=== PATIENT | female | born 2000 | race Caucasian/White ===

== ENCOUNTER → 2021-07-08 | Outpatient (CLI) | payer BC ==
--- NOTE | 2021-07-08 12:23 | Diagnostic Imaging Report ---
INDICATION: OB ultrasound for survey. TECHNIQUE: Multiple real-time grayscale images were obtained over the gravid uterus. COMPARISON: None. FINDINGS: There is single live intrauterine fetus which is vertex. Placenta is anterior and grade 1. No evidence of abruption or previa. Amniotic fluid index is normal. anatomical survey is normal with structures visualized kidneys, bladder, stomach, brain and ventricles, four-chamber heart, three-vessel cord, cord insertion, and spine. The maternal adnexa are normal. Biometrical measurements are as follows: Biparietal 4.86 cm, age 20 weeks 5 days. Head circumference 17.82 cm, age 20 weeks 2 days. Abdominal circumference 15.62 cm, age 20 weeks 6 days. Femur length 3.47 cm, age 21 weeks 0 days. Sonographic estimate age: 20 weeks 5 days. Sonographic estimated date of delivery: 11/20/2021. Estimated Weight: 377 gm (+/- 55 gm). LMP percentile: 87%. heart rate: 155 beats per minute. number: 1 of 1. IMPRESSION: 1. There is a single live intrauterine fetus. Current biometric measurements are average for 20 week 5 day gestation. Sonographic MARCO of 11/20/2021. This is in the 87th percentile with LMP. Dictated by: Dictated on workstation # [id number]
== END ==
LOC: RAD 09:48
PROVIDERS: ATTEND Nurse Practitioner Women's Health
DX: Z34.02 Encounter for supervision of normal first pregnancy, second trimester (principal)
CPT/HCPCS: 76805

== ENCOUNTER 2021-11-12 19:03 | Inpatient (IN) | payer BC, MEDICAID ==
[~2021-11-12] VITALS: Ht 167.7 cm; Wt 87.1 kg
[2021-11-12] VITALS (7 sets, daily range): BP systolic 103–137; BP diastolic 54–75
[2021-11-12] MEDS ORDERED: GLIP5TAB13 PO (19:50)
[2021-11-12] MEDS ORDERED: PNV1TABL9 PO (19:50)
[2021-11-12] MEDS ORDERED: NS IV 1000 ML 1,000 ML ONE ×2 (20:12→21:03)
[2021-11-12] MEDS ORDERED: LIDOCAINE/EPI 2% 1:200,00 (XYLOCAINE) 20 ML VIAL INJ PRN (20:15)
[2021-11-12] MEDS ORDERED: CATHETER FLUSH 10 ML SYR IV PRN (20:15)
[2021-11-12] MEDS ORDERED: NS IV 1000 ML 1,000 ML IV SCH (20:15)
[2021-11-12] MEDS ORDERED: LIDOCAINE 1% INJ 20 ML VIAL INJ PRN (20:15)
[2021-11-12] MEDS ORDERED: TERBUTALINE INJ 1 MG/ML (BRETHINE) AMP SC PRN (20:15)
[2021-11-12] MEDS ORDERED: MINERAL OIL CONCENTRATE 99.9% 15 ML UDC TOP PRN (20:15)
[2021-11-12 20:55] LABS: BASOPHILS % (AUTO) 0 % (0-10); EOSINOPHILS # (AUTO) 0.1 10^3/uL (0.0-0.3); EOSINOPHILS % (AUTO) 1 % (0-10); HEMATOCRIT 35 % (35-52); HEMOGLOBIN 12.2 g/dL (11.5-16.0); LYMPHOCYTES # (AUTO) 2.1 10^3/uL (1.0-4.0); LYMPHOCYTES % (AUTO) 21 % (12-44); MEAN CORPUSCULAR HEMOGLOBIN 31 pg (25-34); MEAN CORPUSCULAR HGB CONC 35 g/dL (32-36); MEAN CORPUSCULAR VOLUME 91 fL (80-99); MONOCYTES # (AUTO) 0.6 10^3/uL (0.0-1.0); MONOCYTES % (AUTO) 6 % (0-12); NEUTROPHILS % (AUTO) 71 % (42-75); PLATELET COUNT 249 10^3/uL (130-400)
[2021-11-12] MEDS: NS IV 1000 ML 1,000 ML IV SCH (21:08)
[2021-11-13] VITALS (99 sets, daily range): BP systolic 79–162; BP diastolic 42–94
[2021-11-13] MEDS: NS IV 1000 ML 1,000 ML IV SCH ×4 (05:07→23:57)
[2021-11-13] MEDS ORDERED: ACETAMINOPHEN 500 MG TAB (TYLENOL) ONE (05:10)
[2021-11-13] MEDS ORDERED: ONDANSETRON 4 MG/2 ML (SDV) Z0FRAN IVP PRN (05:15)
[2021-11-13] MEDS ORDERED: ACETAMINOPHEN 500 MG TAB (TYLENOL) PO PRN (05:15)
[2021-11-13] MEDS ORDERED: OXYTOCIN PRE-MIX DRIP 500 ML IV SCH (08:45)
[2021-11-13] MEDS ORDERED: fentaNYL 2 mcg/ml BUPIVA 0.125 100 ML ONE (13:39)
[2021-11-13] MEDS ORDERED: LACTATED RINGERS 1,000 ML IV ONE ×2 (13:40→16:30)
[2021-11-13] MEDS: fentaNYL 2 mcg/ml BUPIVA 0.125 100 ML IV SCH ×2 (14:40→23:23)
[2021-11-13] MEDS ORDERED: fentaNYL INJ 100 MCG/2 ML AMP ONE (14:48)
[2021-11-13] MEDS ORDERED: fentaNYL INJ 100 MCG/2 ML AMP INJ ONE (16:30)
[2021-11-13] MEDS ORDERED: CATHETER FLUSH 10 ML SYR IV PRN (16:30)
[2021-11-13] MEDS ORDERED: NALOXONE 0.4 MG/ML 1 ML (NARCAN) VIAL IV PRN (16:30)
[2021-11-14] VITALS (33 sets, daily range): BP systolic 102–148; BP diastolic 54–99
[2021-11-14] MEDS ORDERED: CITRIC ACID/SOB CIT (BICITRA) 30 ML UDC PO ONE (05:00)
[2021-11-14] MEDS ORDERED: LACTATED RINGERS 1,000 ML IV PRN ×2 (05:00)
[2021-11-14] MEDS ORDERED: CATHETER FLUSH 10 ML SYR IV PRN (05:00)
[2021-11-14] MEDS ORDERED: METOCLOPRAMIDE INJ 10 MG/2 ML (REGLAN) IV ONE (05:00)
[2021-11-14] MEDS ORDERED: FAMOTIDINE 20MG/2ML IV (PEPCID) IV ONE (05:00)
--- NOTE | 2021-11-14 05:01 | History & Physical-OB ---
OB - Chief Complaint & HPI Date/Time Date of Admission: Date of Admission: Nov 12, 2021 at 19:03 Date seen by a Provider: Nov 13, 2021 Time Seen by a Provider: 07:45 Chief Complaint/History OB-Reason for Admission/Chief: Induction of Labor Hx : 1 Hx Para: 0 Expected Date of Delivery: Nov 25, 2021 Gestational Age in Weeks: 38 Gestational Age in Days: 1 Admission Nurse Assessment Rev: Yes History of Labs A pos Antibody neg RI RPR NR HBsAg NR HIV NR GC neg GBSneg Allergies and Home Medications Allergies Coded Allergies: No Known Drug Allergies (Unverified , 11/12/21) Patient Home Medication List Home Medication List Reviewed: Yes Glipizide (Glipizide) 5 Mg Tablet, 1.25 MG PO DAILY, (Reported) Entered as Reported by: KULWINDER PULLIAM on 11/12/211949 Last Action: Reviewed Pnv Cmb#21/Iron/Folic Acid ( Complete Caplet) 1 Each Tablet, 1 EACH PO DAILY, (Reported) Entered as Reported by: KULWINDER PULLIAM on 11/12/211949 Last Action: Reviewed OB - History Hx of Present Care: Yes Ultrasounds: Normal mid trimester US Obstetrical Complications: Gestational Diabetes Medical Complications: None Patient Past Medical History n/a Immunizations Influenza Vaccine Up-to-Date: Yes; Up-to-Date First/Initial COVID19 Vaccine: 2020 Second COVID19 Vaccination: 2020 COVID19 Vaccine Lna: Tephaa OB - Admission Exam Physical Exam Vitals: Vital Signs 11/14/21 03:15 Temp 37.2 Pulse 68 Resp 18 B/P (MAP) 117/75 (89) Pulse Ox 98 O2 Delivery Room Air HEENT: NCAT Heart: Rhythm Normal Lungs: Clear Abdomen: Gravid Extremities: Normal Reflexes: Normal Cervical Dilatation: Fingertip Effacement: 75% Station: -1 Membranes: Intact Heart Rate: 130's Accelerations: Accelerations Present Decelerations: No Decelerations Short Term Variability: Present Fiber Designer Variability: Average (6-25) Contractions on Admission: >10 Minutes Apart Intensity: Mild OB - Assessment/Plan/Diagnosis Assessment Assessment: induction of labor Admission Dx 21 yo @ 38.3 GDMA2 on Glyburide GBS neg Admission Status: Inpatient Order (span 2 midnights) Reason for Inpatient Admission: 38 week IOL Plan Plan: Induction Induction Method: per Misoprostol Protocol CAIT GUY DO Nov 14, 2021 05:01
--- NOTE | 2021-11-14 05:09 | Progress Note ---
Standard Progress Note Progress Notes/Assess & Plan Date Seen by a Provider: Nov 14, 2021 Time Seen by a Provider: 04:50 Progress/Assessment & Plan This patient was admitted due to GDMA2 on glyburide with worsening control for IOL at 38 weeks. On Wednesday night she received misoprostol 100 mcg po then 50 q 4 hrs overnight. Yesterday morning she was checked and unable to break her water, therefore pitocin augmentation was started. She had AROM performed at about 1300, clear fluid was noted, she began to get more uncomfortable at which point an epidural was placed. She progressed from that point reaching a max dose of pitocin of 20 mu to 9 cm, and stopped making change. I was called to come evaluate at 0430 due to discomfort and pain beyond control of the epidural. She was noted to have significant vulvar swelling, and she was noted to have cervical swelling as well making her SVE appear to be 8 cm, caput noted on presenting part as well. Due to suspicion of CPD I discussed with the patient likely CPD due to long labor progression, and no head descent. I offered delivery which she was agreeable to proceed with, risk of the procedure and recovery reviewed. All questions answered. Will proceed as soon as OR staff arrives and ready. CAIT GUY DO Nov 14, 2021 05:09
[2021-11-14] MEDS ORDERED: MEASLES,MUMPS,RUBELLA 1 EA INJ SC SCH (05:15)
[2021-11-14] MEDS ORDERED: TETANUS,DIPTH,PERTUSS P/F (BOOSTRIX) 0.5 ML VIAL IM SCH (05:15)
[2021-11-14] MEDS ORDERED: ONDANSETRON 4 MG/2 ML (SDV) Z0FRAN IVP PRN ×2 (05:15→07:00)
[2021-11-14] MEDS ORDERED: NALOXONE 0.4 MG/ML 1 ML (NARCAN) VIAL IV PRN (05:15)
[2021-11-14] MEDS ORDERED: fentaNYL INJ 100 MCG/2 ML AMP ONE (05:24)
--- NOTE | 2021-11-14 05:24 | Discharge Inst-Women's Service ---
Discharge Inst-Women's Serv Depart Medication/Instructions New, Converted or Re-Newed RX: Transmitted to Pharmacy Final Diagnosis POD 2 PLTCS Problems Reviewed?: Yes Consults/Follow Up Additional Follow Up: Yes Orders/Referrals Dr. Diaz in 7-10 days and in 6 weeks Activity Driving Instructions: No Driving for 1 Week NO SMOKING: NO SMOKING Nothing Inside Vagina: No Douching, No [place], No Tampons Diet Discharge Diet: No Restrictions Symptoms to Report to : Bleeding Excessive, Pain Increased, Fever Over 101 Degrees F, Vaginal Bleeding Increase, Questions/Concerns For Any Problems or Questions: Contact Your Physician Skin/Wound Care Infection Signs and Symptoms: Increased Redness, Foul Odor of Wound, Increased Drainage, Skin Itchy or Has a Rash, Increased Swelling, Temperature Above 101 F Operative Area Clean and Dry: Keep Incision Clean/Dry Stitches/[place]/Dermabond: Dermabond, Care of Stitches Bathing Instructions: CAIT Vaca DO Nov 14, 2021 05:24
[2021-11-14] MEDS ORDERED: DOCU100C37 PO (05:26)
[2021-11-14] MEDS ORDERED: ACHD5005 PO (05:26)
[2021-11-14] MEDS ORDERED: IBUP-844 PO (05:26)
[2021-11-14] MEDS ORDERED: OXYTOCIN PRE-MIX DRIP 1,000 ML IV ONE (05:26)
[2021-11-14] MEDS: ceFAZolin 2 GM IV Premixed 50 ML IV ONE ×2 (05:36→05:41)
[2021-11-14] MEDS ORDERED: METHYLERGONOVINE 0.2 MG/ML (METHERGINE) AMP ONE (06:01)
[2021-11-14] MEDS ORDERED: MIDAZOLAM 2 MG/2 ML (VERSED) VIAL ONE (06:05)
[2021-11-14] MEDS ORDERED: KETAMINE 50 MG/5 ML SYRINGE ONE (06:08)
[2021-11-14] MEDS ORDERED: KETAMINE HCL 100 MG/ML 5 ML VIAL ONE (06:08)
[2021-11-14] MEDS ORDERED: BUPIVACAINE 0.5% 30 ML (SENSORCAINE) VIAL ONE (06:14)
[2021-11-14] MEDS ORDERED: LIDOCAINE PF 2% 5 ML (XYLOCAINE) VIAL ONE (06:14)
[2021-11-14] MEDS: KETOROLAC 30 MG/ML VIAL IV SCH ×3 (06:53→18:45)
[2021-11-14] MEDS ORDERED: HYDROmorphone 2 MG/ML VIAL (DILAUDID) IV ONE (07:00)
[2021-11-14] MEDS: DOCUSATE SODIUM 100 MG (COLACE) CAP PO SCH ×2 (08:22→22:10)
[2021-11-14] MEDS: HYDROcodone/APAP 5 MG/325 MG (LORTAB) TAB PO PRN ×3 (08:22→22:10)
[2021-11-14] MEDS: OXYTOCIN PRE-MIX DRIP 500 ML IV SCH ×2 (08:23→22:43)
--- NOTE | 2021-11-14 08:35 | OPERATIVE REPORT ---
DATE OF SERVICE: PREOPERATIVE DIAGNOSES: 1. A 21-year-old G1, P0 at 38 weeks and 2 days gestation. 2. Failure to progress. 3. Gestational diabetes mellitus A2. POSTOPERATIVE DIAGNOSES: 1. A 21-year-old G1, P0 at 38 weeks and 2 days gestation. 2. Failure to progress. 3. Gestational diabetes mellitus A2. 4. Nuchal cord x1. PROCEDURE: Primary low transverse section. SURGEON: Ricardo Guy DO ANESTHESIA: Spinal. ESTIMATED BLOOD LOSS: 700 mL. URINE OUTPUT: 300 mL clear at the end of the procedure. FLUIDS: 1000 mL lactated Ringer's solution. FINDINGS: A live female infant weighing 7 pounds 1 ounce, Apgars of 8 and 9. Grossly normal appearing uterus, bilateral fallopian tubes and ovaries. SPECIMEN SENT: Placenta. INDICATIONS FOR PROCEDURE: This 21-year-old female is the patient was brought in on Wednesday evening for induction of labor due to gestational diabetes at 38 weeks. She was given cervical ripening agent overnight, started on Pitocin yesterday. Artificial rupture of membranes was performed. She received an epidural and progressed to 9 cm. She began to have cervical swelling and no descent of the head. There was also significant amount of vulvar swelling. Due to suspicion for cephalopelvic disproportion, I discussed with the patient proceeding with primary . Risks of the procedure were discussed with the patient in detail and after all of her questions were answered, consent was obtained, the patient was taken to the operating room. OPERATIVE REPORT IN DETAIL: Once in the operating room, spinal analgesia was found to be adequate. She was placed in supine position with leftward tilt, prepped and draped in normal sterile fashion. Timeout was performed and anesthesia was tested. I then make a Pfannenstiel skin incision with a knife and carried down to underlying fascia using Bovie cautery. The fascial incision extended laterally using Bovie cautery. Superior aspect of fascial incision was then grasped with Shabnam clamps, tented up and dissected off the underlying rectus muscles. The inferior aspect of fascial incision was then grasped with Shabnam clamps, tented up and dissected off the underlying rectus muscles. Rectus muscles were dissected down the midline, which exposed the peritoneum, which I entered bluntly and extended using blunt traction. I then placed an Brent ring retractor within the peritoneal incision, which offers excellent lateral sidewall retraction. I identified the lower uterine segment, which was found to be thinned out. I make a low transverse incision to the vesicouterine peritoneum and bluntly dissected this off the lower uterine segment, creating a bladder flap. I then proceeded with my myotomy until membranes were visualized, at which point I extended the uterine incision laterally and superiorly using bandage scissors. was found in vertex presentation. With gentle fundal pressure, the 's head was elevated up the incision where the nares and oropharynx were bulb suctioned. Nuchal cord was reduced x1. Anterior and posterior shoulders were delivered. was then brought to the operative field where cord doubly clamped and cut and infant handed off to waiting nurses in attendance. Cord blood was collected, 3-vessel cord with intact placenta was delivered spontaneously thereafter. IV Pitocin was initiated to facilitate uterine contraction. Uterine fundus confirmed by manual massage. The uterus was then exteriorized and cleared of all endometrial clots and debris. I then proceeded with closing the uterine incision using 0 Vicryl suture in running locked fashion. Second layer of imbricating 0 Monocryl was placed. Excellent hemostasis was noted after doing this. I then placed the uterus back in the pelvis and copiously irrigated the pelvis using normal saline. Once again, there was no active bleeding noted from any of my dissection planes. I placed Interceed antiadhesive over my low transverse incision. I removed the Brent ring retractor and then proceeded with closing the peritoneum using 3-0 Vicryl suture in running fashion. Rectus muscles were reapproximated using 3-0 Vicryl suture in interrupted fashion. The fascia was reapproximated using 0 Vicryl suture in a running fashion. Subcutaneous tissue was reapproximated using 3-0 plain interrupted subcutaneous stitch and skin reapproximated using 4-0 Monocryl running subcuticular. Dermabond was applied to incision and sterile dressing with adhesive white tape. The patient tolerated the procedure well and sent to recovery area in stable condition. Lap and sponge counts were correct at the end of the procedure. Instrument counts correct as well. Two grams of Ancef were given preoperatively for infection prophylaxis. Job ID: [id number] DocumentID: [id number] Dictated Date: 11/14/2021 08:22:28 Machine Steak Tenderizer Date: 11/14/2021 08:35:02 Dictated By: RICARDO GUY DO
[2021-11-14] MEDS: fentaNYL 2 mcg/ml BUPIVA 0.125 100 ML IV SCH ×2 (22:35→22:40)
[2021-11-14] MEDS: CATHETER FLUSH 10 ML SYR IV SCH (22:36)
[2021-11-14] MEDS: NS IV 1000 ML 1,000 ML IV SCH (22:38)
[2021-11-15 00:20] VITALS: BP 106/71
[2021-11-15] MEDS: KETOROLAC 30 MG/ML VIAL IV SCH (00:20)
[2021-11-15 04:05] VITALS: BP 113/60
[2021-11-15] MEDS: HYDROcodone/APAP 5 MG/325 MG (LORTAB) TAB PO PRN ×3 (04:09→17:27)
[2021-11-15] MEDS: CATHETER FLUSH 10 ML SYR IV SCH (05:01)
[2021-11-15] MEDS: IBUPROFEN 600 MG (MOTRIN) TAB PO SCH ×4 (06:25→23:41)
[2021-11-15 06:47] LABS: BASOPHILS % (AUTO) 0 % (0-10); EOSINOPHILS # (AUTO) 0.2 10^3/uL (0.0-0.3); EOSINOPHILS % (AUTO) 2 % (0-10); HEMATOCRIT 29 % (35-52); HEMOGLOBIN 9.3 g/dL (11.5-16.0); LYMPHOCYTES # (AUTO) 2.2 10^3/uL (1.0-4.0); LYMPHOCYTES % (AUTO) 21 % (12-44); MEAN CORPUSCULAR HEMOGLOBIN 30 pg (25-34); MEAN CORPUSCULAR HGB CONC 32 g/dL (32-36); MEAN CORPUSCULAR VOLUME 93 fL (80-99); MEAN PLATELET VOLUME 9.9 fL (9.0-12.2); MONOCYTES # (AUTO) 0.9 10^3/uL (0.0-1.0); MONOCYTES % (AUTO) 8 % (0-12); NEUTROPHILS # (AUTO) 7.4 10^3/uL (1.8-7.8); NEUTROPHILS % (AUTO) 68 % (42-75); PLATELET COUNT 149 10^3/uL (130-400); WHITE BLOOD COUNT 10.8 10^3/uL (4.3-11.0)
--- NOTE | 2021-11-15 08:56 | Progress Note ---
PRESLEY DUNN 11/15/21 0856: Subjective Date Seen by a Provider: Nov 15, 2021 Time Seen by a Provider: 08:51 Subjective/Events-last exam 21yo F POD 1 PLTCS. Son reports intense intermittent nonspecific episodes of pain, but patient denies and only reports being a little sore. Ambulating well. Regular diet. Normal lochia. Denies any urinary complaints and passing gas. Denies any fever, chills, nausea, vomiting, or diarrhea. Vitals labile. Objective Exam Last Set of Vital Signs Vital Signs Date Time Temp Pulse Resp B/P (MAP) Pulse Ox O2 Delivery O2 Flow Rate FiO2 11/15/21 04:05 36.3 66 18 113/60 (77) 98 Room Air Capillary Refill : Less Than 3 SecondsLess Than 3 Seconds I&O Intake and Output 11/15/21 00:00 Intake Total 4090 ml Output Total 1850 ml Balance 2240 ml Intake Oral 1250 ml IV Total 2840 ml Output Urine Total 1850 ml General: Alert, Oriented X3, Cooperative HEENT: Atraumatic, EOMI Neck: Supple Lungs: Clear to Auscultation Heart: Regular Rate Abdomen: Soft, No Tenderness Neuro: Normal Speech Psych/Mental Status: Mental Status NL Results Lab Laboratory Tests 11/15/21 06:02: White Blood Count 10.8, Red Blood Count 3.08L, Hemoglobin 9.3#L, Hematocrit 29L, Mean Corpuscular Volume 93, Mean Corpuscular Hemoglobin 30, Mean Corpuscular Hemoglobin Concent 32, Red Cell Distribution Width 13.1, Platelet Count 149, Mean Platelet Volume 9.9, Immature Granulocyte % (Auto) 1, Neutrophils (%) (Auto) 68, Lymphocytes (%) (Auto) 21, Monocytes (%) (Auto) 8, Eosinophils (%) (Auto) 2, Basophils (%) (Auto) 0, Neutrophils # (Auto) 7.4, Lymphocytes # (Auto) 2.2, Monocytes # (Auto) 0.9, Eosinophils # (Auto) 0.2, Basophils # (Auto) 0.0, Immature Granulocyte # (Auto) 0.1 Assessment/Plan Assessment/Plan Assess & Plan/Chief Complaint 21yo POD 1 PLTCS GDMA2 on glyburide GBS - 11/15/21: Continue to ambulate Encourage breast feeding Continue incentive spirometer use Possible discharge tomorrow VONDA CAPPS DO 11/15/21 0934: Assessment/Plan Assessment/Plan Assess & Plan/Chief Complaint Agree with assessment and plan Supervisory-Addendum Brief Verification & Attestation Participated in pt care: history, physical Personally performed: supervision of care Care discussed with: Medical Student Procedures: n/a I have seen and examined the patient and agree with assessment and plan. PRESLEY DUNN Nov 15, 2021 08:56 VONDA CAPPS DO Nov 15, 2021 09:34
[2021-11-15] MEDS: DOCUSATE SODIUM 100 MG (COLACE) CAP PO SCH ×2 (10:41→23:39)
[2021-11-15 12:11] VITALS: BP 133/78
--- NOTE | 2021-11-15 12:25 | Anesthesia-Regional Post-Op ---
Regional Patient Condition Mental Status: Alert, Oriented x3 Circulation: Same as Pre-Op Headache: Absent Sensation: Full Recovery Motor Block: Absent Post Op Complications Complications None Follow Up Care/Instructions Patient Instructions None needed. Anesthesia/Patient Condition Patient is doing well, no complaints, stable vital signs, no apparent adverse anesthesia problems. No complications reported per nursing. BERNARD THAKUR CRNA Nov 15, 2021 12:25
[2021-11-15 17:30] VITALS: BP 113/81
[2021-11-15] MEDS ORDERED: SIMETHICONE 80 MG (MYLICON) CHEW ONE (18:40)
[2021-11-15] MEDS: SIMETHICONE 80 MG (MYLICON) CHEW PO SCH ×2 (18:42→23:40)
[2021-11-15 23:45] VITALS: BP 101/60
[2021-11-16] MEDS: HYDROcodone/APAP 5 MG/325 MG (LORTAB) TAB PO PRN (02:26)
[2021-11-16 05:52] VITALS: BP 114/69
[2021-11-16] MEDS: IBUPROFEN 600 MG (MOTRIN) TAB PO SCH (05:52)
--- NOTE | 2021-11-16 08:51 | Progress Note ---
PRESLEY DUNN 11/16/21 0851: Subjective Date Seen by a Provider: Nov 16, 2021 Time Seen by a Provider: 08:45 Subjective/Events-last exam 21yo F POD 2 PLTCS. Up and walking upon entry in room. Reported some mild right shoulder and lower extremity pain. Denies any chest pain, SOB, or calf tenderness. Continues to ambulate well, regular diet, and normal lochia. Denies having any bowel movement yet, but is passing gas. Denies any fever, chills, nausea, or vomiting. Objective Exam Last Set of Vital Signs Vital Signs Date Time Temp Pulse Resp B/P (MAP) Pulse Ox O2 Delivery O2 Flow Rate FiO2 11/16/21 05:52 36.7 76 18 114/69 (84) Room Air 11/15/21 17:30 97 Capillary Refill : Less Than 3 SecondsLess Than 3 Seconds I&O Intake and Output 11/16/21 00:00 Intake Total 600 ml Output Total 700 ml Balance -100 ml Intake Oral 600 ml Output Urine Total 700 ml General: Alert, Oriented X3, Cooperative HEENT: EOMI Neck: Supple Lungs: Clear to Auscultation, Normal Air Movement Heart: Regular Rate Abdomen: Soft, No Tenderness Extremities: No Cyanosis Skin: No Rashes Neuro: Normal Speech Psych/Mental Status: Mental Status NL, Mood NL Assessment/Plan Assessment/Plan Assess & Plan/Chief Complaint 21yo POD 2 PLTCS GDMA2 on glyburide GBS - 11/16/21: Discharge today Continue to ambulate, breast feed, and use incentive spirometer Return if bleeding or symptoms worsen 11/15/21: Continue to ambulate Encourage breast feeding Continue incentive spirometer use Possible discharge tomorrow VONDA CAPPS DO 11/16/21 0938: Subjective Subjective/Events-last exam States that she feels better than yesterday. Objective Exam Extremities: No Tenderness/Swelling Supervisory-Addendum Brief Verification & Attestation Participated in pt care: history, physical Personally performed: supervision of care Care discussed with: Medical Student Procedures: n/a I have seen and examined patient and agree with assessment and plan. PRESLEY DUNN Nov 16, 2021 08:51 VONDA CAPPS DO Nov 16, 2021 09:38
[2021-11-16 10:18] VITALS: BP 118/72
[2021-11-16] MEDS: SIMETHICONE 80 MG (MYLICON) CHEW PO SCH (10:18)
[2021-11-16] MEDS: DOCUSATE SODIUM 100 MG (COLACE) CAP PO SCH (10:18)
== END 2021-11-16 10:45 | disposition home or self-care (01) | DRG 788 ==
LOC: LDRP 19:03
PROVIDERS: ADMIT Obstetrics & Gynecology; ATTEND Obstetrics & Gynecology
PROC: 3E0DXGC Introduction of Other Therapeutic Substance into Mouth and Pharynx, External Approach (ICD-10-PCS; 2021-11-13)
PROC: 10D00Z1 Extraction of Products of Conception, Low, Open Approach (ICD-10-PCS; principal; 2021-11-14 05:41)
DX: O24.425 Gestational diabetes mellitus in childbirth, controlled by oral hypoglycemic drugs (principal); O32.4XX0 Maternal care for high head at term, not applicable or unspecified; O69.81X0 Labor and delivery complicated by cord around neck, without compression, not applicable or unspecified; Z37.0 Single live birth; Z3A.38 38 weeks gestation of pregnancy; Z79.84 Long term (current) use of oral hypoglycemic drugs
CPT/HCPCS: 36415; 82947; 85025; 86850; 86900; 86901; 94664

== ENCOUNTER → 2023-02-25 | Outpatient (CLI) | payer BC, MEDICAID ==
[~2023-02-25] MED LIST: ACHD5005 PO; CATHETER FLUSH 10 ML SYR IVP PRN; DOCU100C37 PO; GLIP5TAB13 PO; IBUP-844 PO; PNV1TABL9 PO
--- NOTE | 2023-02-25 13:48 | Diagnostic Imaging Report ---
INDICATION: Nausea. Patient was administered 5.3 mCi technetium 99m Choletec intravenously and imaging over the abdomen was performed. There is homogeneous uptake of activity by the liver with prompt excretion of activity into the common duct and gallbladder. There is normal passage of activity into the small bowel. Gallbladder ejection fraction is normal at 61%. IMPRESSION: Normal HIDA scan and gallbladder ejection fraction. Dictated by: Dictated on workstation # [id number]
== END ==
LOC: CARD 09:31
PROVIDERS: ATTEND Registered Nurse
DX: R10.13 Epigastric pain (principal); R11.2 Nausea with vomiting, unspecified
CPT/HCPCS: 78227; A9537